=== PATIENT | female | born 1950 | race Caucasian/White ===

== ENCOUNTER 2024-05-24 09:25 | Emergency (ER) | payer MEDICARE, BC ==
[2024-05-24 10:34] LABS: BASOPHILS PERCENT AUTO 0.1 % (0.2-1.2); EOSINOPHILS PERCENT AUTO 0.3 % (0.0-4.0); HEMATOCRIT 40.5 % (33.0-47.0); HEMOGLOBIN 14.2 g/dL (12.0-16.0); IMMATURE GRAN ABSOLUTE AUTO 0.01 x10^3/uL (0.00-0.07); LYMPHOCYTES ABSOLUTE AUTO 0.8 x10^3/uL (1.0-4.8); LYMPHOCYTES PERCENT AUTO 9.2 % (25.0-50.0); MEAN CORPUSCULAR HEMOGLOBIN 29.6 pg (26.0-32.0); MEAN CORPUSCULAR HGB CONC 35.1 g/dL (32.0-36.0); MEAN CORPUSCULAR VOLUME 84.6 fL (78.0-93.0); MONOCYTES ABSOLUTE AUTO 0.5 x10^3/uL (0.0-0.8); MONOCYTES PERCENT AUTO 5.9 % (2.0-11.0); NEUTROPHILS ABSOLUTE AUTO 7.4 x10^3/uL (1.8-7.7); NEUTROPHILS PERCENT AUTO 84.4 % (50.0-80.0); PLATELET COUNT,PLT 201 x10^3/uL (130-400); RED BLOOD CELL COUNT 4.79 x10^6/uL (4.00-5.50); WHITE BLOOD CELL COUNT,WBC 8.7 x10^3/uL (4.0-10.0)
[2024-05-24 10:59] LABS: A/G RATIO 1.21; ALBUMIN 4.1 g/dL (3.4-5.0); BILIRUBIN TOTAL 0.7 mg/dL (0.2-1.0); CALCIUM 8.9 mg/dL (8.5-10.1); CREATININE 0.7 mg/dL (0.55-1.02); EST CRCL DRUG DOSING (CG) 64.01 mL/min; POTASSIUM,K 3.5 mmol/L (3.5-5.1); PROTEIN TOTAL,TP 7.5 g/dL (6.4-8.2)
[2024-05-24 11:00] LABS: ANION GAP 15.5 mmol/L (5-15)
[2024-05-24 11:00] LABS: APPEARANCE,URINE SLIGHTLY CLOUDY (CLEAR); BILIRUBIN,URINE NEGATIVE (NEGATIVE); COLOR,URINE YELLOW (YELLOW); GLUCOSE,URINE NEGATIVE (NEGATIVE); KETONES,URINE NEGATIVE (NEGATIVE); LEUKOCYTE ESTERASE,URINE SMALL (NEGATIVE); NITRITE,URINE POSITIVE (NEGATIVE); OCCULT BLOOD,URINE TRACE-INTACT (NEGATIVE); PROTEIN,URINE NEGATIVE (NEGATIVE); UROBILINOGEN,URINE 0.2 EU/dL (0.2)
[2024-05-24 11:06] LABS: BACTERIA,URINE MANY /HPF (NOT SEEN); RBC,URINE NOT SEEN /HPF (NOT SEEN); SQUAMOUS EPITHELIAL CELLS,UR OCCASIONAL /HPF (NOT SEEN)
== END 2024-05-24 13:30 | disposition home or self-care (01) ==
LOC: VM.ED 09:25
DX: N30.01 Acute cystitis with hematuria (principal); I10 Essential (primary) hypertension; R53.1 Weakness; R79.89 Other specified abnormal findings of blood chemistry; Z88.0 Allergy status to penicillin; Z91.018 Allergy to other foods; Z88.8 Allergy status to other drugs, medicaments and biological substances; Z79.82 Long term (current) use of aspirin; Z79.899 Other long term (current) drug therapy
CPT/HCPCS: 36415; 70450; 80053; 81001; 84484; 85025; 99285

== ENCOUNTER 2024-05-25 16:51 | Inpatient (IN) | payer MEDICARE, BC ==
[2024-05-25] MEDS ORDERED: Sodium Chloride 0.9% 10 ML Syringe FLUSH PRN (17:17)
[2024-05-25 17:37] LABS: BASOPHILS PERCENT AUTO 0.1 % (0.2-1.2); EOSINOPHILS PERCENT AUTO 0.1 % (0.0-4.0); HEMATOCRIT 38.8 % (33.0-47.0); HEMOGLOBIN 13.5 g/dL (12.0-16.0); IMMATURE GRAN ABSOLUTE AUTO 0.02 x10^3/uL (0.00-0.07); LYMPHOCYTES ABSOLUTE AUTO 0.7 x10^3/uL (1.0-4.8); LYMPHOCYTES PERCENT AUTO 9.7 % (25.0-50.0); MEAN CORPUSCULAR HEMOGLOBIN 29.3 pg (26.0-32.0); MEAN CORPUSCULAR HGB CONC 34.8 g/dL (32.0-36.0); MEAN CORPUSCULAR VOLUME 84.2 fL (78.0-93.0); MONOCYTES ABSOLUTE AUTO 0.3 x10^3/uL (0.0-0.8); MONOCYTES PERCENT AUTO 4.6 % (2.0-11.0); NEUTROPHILS ABSOLUTE AUTO 5.9 x10^3/uL (1.8-7.7); NEUTROPHILS PERCENT AUTO 85.2 % (50.0-80.0); PLATELET COUNT,PLT 186 x10^3/uL (130-400); RED BLOOD CELL COUNT 4.61 x10^6/uL (4.00-5.50); WHITE BLOOD CELL COUNT,WBC 6.9 x10^3/uL (4.0-10.0)
[2024-05-25 18:01] LABS: ALANINE AMINOTRANSFERASE,ALT 22 U/L (14-59); ALBUMIN 4.1 g/dL (3.4-5.0); ALKALINE PHOSPHATASE 76 U/L (46-116); ASPARTATE AMNIOTRANSFERASE,AST 18 U/L (15-37); BILIRUBIN TOTAL 0.6 mg/dL (0.2-1.0); BLOOD UREA NITROGEN,BUN 12 mg/dL (7-18); CALCIUM 8.8 mg/dL (8.5-10.1); CARBON DIOXIDE,CO2 28 mmol/L (21-32); CHLORIDE,CL 90 mmol/L (98-107); CREATININE 0.7 mg/dL (0.55-1.02); GLUCOSE RANDOM 133 mg/dL (70-99); POTASSIUM,K 3.5 mmol/L (3.5-5.1); PROTEIN TOTAL,TP 8.2 g/dL (6.4-8.2)
[2024-05-25 18:04] LABS: ANION GAP 13.5 mmol/L (5-15); ESTIMATED GFR 90 mL/min (>=60)
[2024-05-25 18:05] LABS: SODIUM,NA 128 mmol/L (136-145)
[2024-05-25] MEDS ORDERED: Docusate Sodium 100 MG Cap PO PRN (20:44)
[2024-05-25] MEDS ORDERED: Nitroglycerin 0.4 MG Tab.SL SL PRN (20:44)
[2024-05-25] MEDS: Sodium Chloride 0.9% 1,000 ML IV SCH (20:49)
[2024-05-25] MEDS: cefTRIAXone 1 GM Vial IVPUSH SCH (20:49)
[2024-05-25] MEDS: Gabapentin 100 MG Cap PO SCH (21:34)
[2024-05-25] MEDS: Losartan 50 MG Tab PO ONE ×2 (21:35→23:14)
[2024-05-25] MEDS: Carvedilol 25 MG Tab PO SCH (21:35)
[2024-05-25] MEDS: Timolol Maleate 0.5% Ophth Soln 5 ML Bottle EYEBOTH SCH (21:39)
[2024-05-25] MEDS: Triamcinolone Acetonide 0.1% Crm 15 GM Tube TOP SCH (21:39)
[2024-05-25] MEDS: Acetaminophen 500 MG Tab PO PRN (22:27)
[2024-05-26 07:57] LABS: HEMATOCRIT 41.2 % (33.0-47.0); HEMOGLOBIN 14.1 g/dL (12.0-16.0); MEAN CORPUSCULAR HEMOGLOBIN 28.9 pg (26.0-32.0); MEAN CORPUSCULAR HGB CONC 34.2 g/dL (32.0-36.0); MEAN CORPUSCULAR VOLUME 84.4 fL (78.0-93.0); RED BLOOD CELL COUNT 4.88 x10^6/uL (4.00-5.50); WHITE BLOOD CELL COUNT,WBC 6.3 x10^3/uL (4.0-10.0)
[2024-05-26 08:10] LABS: CALCIUM 8.5 mg/dL (8.5-10.1); CREATININE 0.7 mg/dL (0.55-1.02); EST CRCL DRUG DOSING (CG) 64.01 mL/min; POTASSIUM,K 3.1 mmol/L (3.5-5.1)
[2024-05-26 08:19] LABS: ANION GAP 13.1 mmol/L (5-15)
[2024-05-26] MEDS: amLODIPine 10 MG Tab PO SCH (08:45)
[2024-05-26] MEDS: Cholecalciferol (Vitamin D3) 25 MCG Tab PO SCH (08:45)
[2024-05-26] MEDS: FLUoxetine 20 MG Cap PO SCH (08:45)
[2024-05-26] MEDS: Losartan 50 MG Tab PO SCH (08:46)
[2024-05-26] MEDS: Aspirin 81 MG Tab.Chew PO SCH (08:46)
[2024-05-26] MEDS: Rosuvastatin 20 MG Tab PO SCH (08:46)
[2024-05-26] MEDS: Calcium Carbonate/Vitamin D3 1250 MG-5 MCG Tab PO SCH (08:46)
[2024-05-26] MEDS: buPROPion 150 MG Tab.ER PO SCH (08:46)
[2024-05-26] MEDS: Enoxaparin 40 MG/0.4 ML Syringe SUBCUT SCH (08:47)
[2024-05-26] MEDS: Omeprazole 20 MG Cap.CR PO SCH (08:47)
[2024-05-26] MEDS: Potassium Chloride 20 MEQ Tab.ER PO SCH (13:15)
[2024-05-27 06:51] LABS: ANION GAP 11.6 mmol/L (5-15); CALCIUM 8.6 mg/dL (8.5-10.1); CREATININE 0.7 mg/dL (0.55-1.02); EST CRCL DRUG DOSING (CG) 64.01 mL/min; POTASSIUM,K 3.6 mmol/L (3.5-5.1)
[2024-05-27 06:54] LABS: HEMATOCRIT 40.4 % (33.0-47.0); HEMOGLOBIN 14.2 g/dL (12.0-16.0); MEAN CORPUSCULAR HEMOGLOBIN 29.5 pg (26.0-32.0); MEAN CORPUSCULAR HGB CONC 35.1 g/dL (32.0-36.0); MEAN CORPUSCULAR VOLUME 83.8 fL (78.0-93.0); RED BLOOD CELL COUNT 4.82 x10^6/uL (4.00-5.50); WHITE BLOOD CELL COUNT,WBC 5.7 x10^3/uL (4.0-10.0)
[2024-05-27] MEDS: MODAFINIL 100 MG PO SCH (09:06)
[2024-05-27] MEDS ORDERED: MODAFINIL 100 MG PO PRN (11:00)
[2024-05-27] MEDS: Spironolactone 25 MG Tab PO SCH (15:07)
[2024-05-28 06:56] LABS: HEMATOCRIT 42.7 % (33.0-47.0); HEMOGLOBIN 14.7 g/dL (12.0-16.0); MEAN CORPUSCULAR HEMOGLOBIN 29.2 pg (26.0-32.0); MEAN CORPUSCULAR HGB CONC 34.4 g/dL (32.0-36.0); MEAN CORPUSCULAR VOLUME 84.9 fL (78.0-93.0); RED BLOOD CELL COUNT 5.03 x10^6/uL (4.00-5.50); WHITE BLOOD CELL COUNT,WBC 6.3 x10^3/uL (4.0-10.0)
[2024-05-28 07:05] LABS: CALCIUM 8.7 mg/dL (8.5-10.1); CREATININE 0.7 mg/dL (0.55-1.02); EST CRCL DRUG DOSING (CG) 64.01 mL/min; POTASSIUM,K 4.2 mmol/L (3.5-5.1)
[2024-05-28 07:06] LABS: ANION GAP 11.2 mmol/L (5-15)
== END 2024-05-28 11:00 | disposition home or self-care (01) | DRG 690 ==
LOC: VM.ED 16:51 → VM.MS 19:41
PROVIDERS: ADMIT Nurse Practitioner Family; ATTEND Nurse Practitioner Family
DX: N30.01 Acute cystitis with hematuria (principal); R41.0 Disorientation, unspecified; E87.1 Hypo-osmolality and hyponatremia; I25.10 Atherosclerotic heart disease of native coronary artery without angina pectoris; I25.2 Old myocardial infarction; I10 Essential (primary) hypertension; Z91.018 Allergy to other foods; E78.5 Hyperlipidemia, unspecified; G47.33 Obstructive sleep apnea (adult) (pediatric); F32.A Depression, unspecified; F41.9 Anxiety disorder, unspecified; K21.9 Gastro-esophageal reflux disease without esophagitis; D50.9 Iron deficiency anemia, unspecified; E86.0 Dehydration; G25.81 Restless legs syndrome; K90.0 Celiac disease; E87.6 Hypokalemia; R29.6 Repeated falls; R79.89 Other specified abnormal findings of blood chemistry; Z95.5 Presence of coronary angioplasty implant and graft; Z88.0 Allergy status to penicillin; Z88.8 Allergy status to other drugs, medicaments and biological substances; Z79.82 Long term (current) use of aspirin; Z79.899 Other long term (current) drug therapy; Z98.49 Cataract extraction status, unspecified eye; Z90.710 Acquired absence of both cervix and uterus; Z90.49 Acquired absence of other specified parts of digestive tract; Z90.721 Acquired absence of ovaries, unilateral; Z98.51 Tubal ligation status; Z98.890 Other specified postprocedural states
CPT/HCPCS: 36415; 80048; 80053; 83605; 84484; 85025; 85027; 93010; 99284; 99285; A9270-GY; J0696; J1650; J7030

== ENCOUNTER 2024-09-19 15:12 | Emergency (ER) | payer MEDICARE, BC ==
[2024-09-19] MEDS: hydrALAZINE 20 MG/ML SDV IVPUSH ONE ×3 (15:43→17:13)
[2024-09-19 15:59] LABS: BASOPHILS PERCENT AUTO 0.2 % (0.2-1.2); EOSINOPHILS ABSOLUTE AUTO 0.3 x10^3/uL (0.0-0.5); EOSINOPHILS PERCENT AUTO 7.1 % (0.0-4.0); HEMATOCRIT 38.8 % (33.0-47.0); HEMOGLOBIN 13.5 g/dL (12.0-16.0); MEAN CORPUSCULAR HGB CONC 34.8 g/dL (32.0-36.0); MEAN CORPUSCULAR VOLUME 86.2 fL (78.0-93.0); MONOCYTES ABSOLUTE AUTO 0.3 x10^3/uL (0.0-0.8); MONOCYTES PERCENT AUTO 7.3 % (2.0-11.0); NEUTROPHILS ABSOLUTE AUTO 2.8 x10^3/uL (1.8-7.7); NEUTROPHILS PERCENT AUTO 63.4 % (50.0-80.0); PLATELET COUNT,PLT 193 x10^3/uL (130-400); WHITE BLOOD CELL COUNT,WBC 4.4 x10^3/uL (4.0-10.0)
[2024-09-19 16:22] LABS: ALANINE AMINOTRANSFERASE,ALT 27 U/L (14-59); ALBUMIN 3.5 g/dL (3.4-5.0); ALKALINE PHOSPHATASE 75 U/L (46-116); ASPARTATE AMNIOTRANSFERASE,AST 24 U/L (15-37); BILIRUBIN TOTAL 0.3 mg/dL (0.2-1.0); BLOOD UREA NITROGEN,BUN 9 mg/dL (7-18); CALCIUM 8.9 mg/dL (8.5-10.1); CARBON DIOXIDE,CO2 27 mmol/L (21-32); CHLORIDE,CL 100 mmol/L (98-107); CREATININE 0.6 mg/dL (0.55-1.02); GLUCOSE RANDOM 106 mg/dL (70-99); POTASSIUM,K 3.9 mmol/L (3.5-5.1); SODIUM,NA 137 mmol/L (136-145)
[2024-09-19 16:23] LABS: ANION GAP 13.9 mmol/L (5-15); ESTIMATED GFR 93 mL/min (>=60)
[2024-09-19] MEDS: niCARdipine/Normal Saline 20 MG in Premix Bag 1 BAG IV SCH (17:31)
== END 2024-09-19 18:48 | disposition short-term general hospital (02) ==
LOC: VM.ED 15:12
DX: I21.4 Non-ST elevation (NSTEMI) myocardial infarction (principal); I16.9 Hypertensive crisis, unspecified; I10 Essential (primary) hypertension; I25.2 Old myocardial infarction; I25.10 Atherosclerotic heart disease of native coronary artery without angina pectoris; K21.9 Gastro-esophageal reflux disease without esophagitis; E78.00 Pure hypercholesterolemia, unspecified; Z88.0 Allergy status to penicillin; Z91.018 Allergy to other foods; Z88.8 Allergy status to other drugs, medicaments and biological substances; Z79.899 Other long term (current) drug therapy; Z90.49 Acquired absence of other specified parts of digestive tract; Z90.710 Acquired absence of both cervix and uterus
CPT/HCPCS: 36415; 80053; 84484; 85025; 93005; 96365; 96375; 96376; 99285; J0360; 93010; 99284; J3490